=== PATIENT | female | born 1995 | race American Indian/Alaskan Native ===

== ENCOUNTER 2019-08-05 11:41 | Emergency (ER) | payer SELFPAY ==
[2019-08-05 11:59] VITALS: BP 150/84
--- NOTE | 2019-08-05 13:57 | Emergency Department Report ---
ED Female HPI - General Chief complaint: Skin/Abscess/Foreign Body Stated complaint: FB IN VAGINA SINCE 10PM Time Seen by Provider: 08/05/19 13:50 Source: patient Mode of arrival: Ambulatory Limitations: No Limitations - History of Present Illness Initial comments: Patient is a 23-year-old female who presents emergency room with complaints of a possible condom being stuck in her vagina since 10 PM last night. She states that she is not sure if it is still inside but states that she could not find it after having intercourse with her partner. She denies any pelvic pain, abdominal pain, vaginal discharge, dysuria, any complaints. She denies any past medical history or allergies to medications. She states that she is not concerned for STDs. - Related Data Allergies Allergy/AdvReac Type Severity Reaction Status Date / Time No Known Allergies Allergy Unverified 08/05/19 11:55 ED Review of Systems ROS: Stated complaint: FB IN VAGINA SINCE 10PM Other details as noted in HPI Comment: All other systems reviewed and negative ED Past Medical Hx - Past Medical History Previous Medical History?: No - Surgical History Past Surgical History?: No - Social History Smoking Status: Never Smoker Substance Use Type: None ED Physical Exam - General Limitations: No Limitations General appearance: alert, in no apparent distress - Head Head exam: Present: atraumatic, normocephalic - Eye Eye exam: Present: normal appearance - ENT ENT exam: Present: mucous membranes moist - Speculum exam: Present: vaginal bleeding, foreign body (there is small amount of bleeding present in the vaginal canal, condom present in the deep end of the vaginal canal near the cervix, removed with forceps, pt tolerated well, no complications, 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 Absent: vaginal discharge, cervical discharge - Neurological Exam Neurological exam: Present: alert, oriented X3 - Psychiatric Psychiatric exam: Present: normal affect, normal mood - Skin Skin exam: Present: warm, dry, intact ED Course Vital Signs 08/05/19 11:55 Temperature 98.2 F Pulse Rate 72 Respiratory 18 Rate Blood Pressure 150/84 O2 Sat by Pulse 100 Oximetry ED Medical Decision Making - Medical Decision Making Patient is a 23-year-old female who presents emergency room with complaints of a possible condom being stuck in her vagina since 10 PM last night. She states that she is not sure if it is still inside but states that she could not find it after having intercourse with her partner. She denies any pelvic pain, abdominal pain, vaginal discharge, dysuria, any complaints. She denies any past medical history or allergies to medications. She states that she is not concerned for STDs. Vitals are stable. 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 Foreign body was removed. advised pt Please follow-up with the [facility]. Please follow-up with the health department. Please have STD panel performed by the health department or clinic. Return to emergency room for any new or worsening symptoms. Critical care attestation.: If time is entered above; I have spent that time in minutes in the direct care of this critically ill patient, excluding procedure time. ED Disposition Clinical Impression: Foreign body in vagina Qualifiers: Encounter type: initial encounter Qualified Code(s): T19.2XXA - Foreign body in vulva and vagina, initial encounter Disposition: TO HOME OR SELFCARE Is pt being admited?: No Does the pt Need Aspirin: No Condition: Stable Instructions: Vaginal Foreign Body (ED) Additional Instructions: Please follow-up with the [facility]. Please follow-up with the health department. Please have STD panel performed by the health department or clinic. Return to emergency room for any new or worsening symptoms. Referrals: [facility] [Provider Group] - 3-5 Days [place] [Outside] - 3-5 Days Time of Disposition: 14:27 Print Language: FAROESE
== END 2019-08-05 15:24 | disposition home or self-care (01) ==
LOC: ED 11:41
DX: T19.2XXA Foreign body in vulva and vagina, initial encounter (principal); X58.XXXA Exposure to other specified factors, initial encounter; Y93.89 Activity, other specified; Y92.89 Other specified places as the place of occurrence of the external cause; Y99.8 Other external cause status

== ENCOUNTER 2021-06-11 13:43 | Inpatient (IN) | payer OTHER ==
--- NOTE | 2021-06-11 19:36 | Emergency Department Report ---
ED General Adult HPI - General Chief complaint: Recheck/Abnormal Lab/Rx Stated complaint: HEAVY BLEEDING/COUGHING/WEAK/DIZZY PUI?: No Time Seen by Provider: 06/11/21 18:55 Source: patient Mode of arrival: Ambulatory Limitations: No Limitations - History of Present Illness Initial comments: Patient is a 25-year-old female that presents emergency room with complaints of heavy menstrual bleeding for 3 months, dizziness, anemia, cough, lightheadedness and weakness. Patient states her symptoms been going on for 3 months. Patient states she went to see her csr today and was going to get a iron infusion but her hemoglobin was 5.7 and the csr sent to the emergency room for transfusion and possible admission. Patient states she has not seen her DIRECTOR CLINICAL RESEARCH yet for the heavy menstrual bleeding. Patient states she is been bleeding consistently for the entire 90 days. Patient states she is had multiple transfusions for this. Patient states been to multiple ERs. Patient states she is getting ready to get iron transfusions once her H&H is a little higher. Patient denies recent travel. Patient denies recent international travel. Patient denies exposure to the novel coronavirus. Patient denies sick contacts. Patient denies fever and chills. Patient denies cough. Patient denies diarrhea. Patient denies coming in contact with anybody with symptoms of the novel coronavirus. -: Sudden Consistency: constant Improves with: rest Worsens with: movement Associated Symptoms: cough, malaise, weakness. denies: confusion, chest pain, diaphoresis, fever/chills, headaches, loss of appetite, nausea/vomiting, rash, seizure, shortness of breath, syncope - Related Data Previous Rx's Medication Instructions Recorded Last Taken Type Ferrous Sulfate [Ferrous Sulfate 324 mg PO TID #60 tablet. 10/30/19 Unknown Rx 324 MG] medroxyPROGESTERone ACETATE 10 mg PO DAILY #10 tablet 10/30/19 Unknown Rx [Provera] Allergies Allergy/AdvReac Type Severity Reaction Status Date / Time No Known Allergies Allergy Verified 06/11/21 23:07 ED Review of Systems ROS: Stated complaint: HEAVY BLEEDING/COUGHING/WEAK/DIZZY Other details as noted in HPI Constitutional: malaise, weakness. denies: chills, fever Eyes: denies: eye pain, eye discharge, vision change ENT: denies: ear pain, throat pain Respiratory: denies: cough, wheezing Cardiovascular: denies: chest pain, palpitations Endocrine: no symptoms reported Gastrointestinal: denies: abdominal pain, nausea, diarrhea Genitourinary: denies: urgency, dysuria, discharge Musculoskeletal: denies: back pain, joint swelling, arthralgia Skin: denies: rash, lesions Neurological: as per HPI, weakness. denies: headache, paresthesias Psychiatric: denies: anxiety, depression Hematological/Lymphatic: denies: easy bleeding, easy bruising ED Past Medical Hx - Past Medical History Previous Medical History?: Yes Additional medical history: anemia, blood transfusion - Surgical History Past Surgical History?: No - Family History Family history: no significant - Social History Smoking Status: Never Smoker Substance Use Type: None - Medications Home Medications: Home Medications Medication Instructions Recorded Confirmed Last Taken Type Ferrous Sulfate [Ferrous Sulfate 324 mg PO TID #60 tablet. 10/30/19 Unknown Rx 324 MG] medroxyPROGESTERone ACETATE 10 mg PO DAILY #10 tablet 10/30/19 Unknown Rx [Provera] ED Physical Exam - General Limitations: No Limitations General appearance: alert, in no apparent distress - Head Head exam: Present: atraumatic, normocephalic - Eye Eye exam: Present: normal appearance - ENT ENT exam: Present: mucous membranes moist - Neck Neck exam: Present: normal inspection - Respiratory Respiratory exam: Present: normal lung sounds bilaterally. Absent: respiratory distress - Cardiovascular Cardiovascular Exam: Present: regular rate, normal rhythm. Absent: systolic murmur, diastolic murmur, rubs, gallop - GI/Abdominal GI/Abdominal exam: Present: soft, normal bowel sounds - Extremities Exam Extremities exam: Present: normal inspection - Back Exam Back exam: Present: normal inspection - Neurological Exam Neurological exam: Present: alert, oriented X3 - Psychiatric Psychiatric exam: Present: normal affect, normal mood - Skin Skin exam: Present: warm, dry, intact, normal color. Absent: rash ED Course - Reevaluation(s) Reevaluation #1: I discussed all results with patient. I discussed plan of care with patient. Patient agrees with plan of care and admission. Patient to be admitted to the DIRECTOR CLINICAL RESEARCH service. 06/11/21 22:12 - Consultations Consultation #1: I discussed the case with Dr. Pollard. Dr. Pollard has accepted the patient be admitted to [facility]. 06/11/21 22:12 ED Medical Decision Making - Lab Data Result diagrams: 06/11/21 19:27 06/11/21 19:27 - Medical Decision Making Patient is a 25-year-old female who presents emergency room for dizziness, lightheadedness, anemia, abnormal menstrual bleeding. Patient states she is having bleeding for 3 months. Patient states she is had multiple transfusions. Patient states she saw her csr today and they sent her here to have a transfusion. Patient had labs done and was unremarkable save for severe anemia. Patient's hemoglobin was 5.9. Patient typed and crossed. Patient given 1 unit in the ER. Patient admits to the PROFESSOR OF RHETORIC service since the patient's primary problem is a gynecologic problem. Critical care time documented due to the multiple reassessments, prolonged time at the bedside, interpretation of diagnostics and labs. - Differential Diagnosis Dizziness, lightheadedness, symptomatic anemia, abnormal menstrual Critical Care Time: Yes Critical care time in (mins) excluding proc time.: 35 Critical care attestation.: If time is entered above; I have spent that time in minutes in the direct care of this critically ill patient, excluding procedure time. Critical Care Time: 35 minutes ED Disposition Clinical Impression: Dizziness, Dysfunctional uterine bleeding Anemia Qualifiers: Anemia type: unspecified type Qualified Code(s): D64.9 - Anemia, unspecified Disposition: 09 ADMITTED INPATIENT Is pt being admited?: Yes Does the pt Need Aspirin: No Condition: Critical Time of Disposition: 22:11
[2021-06-11 20:00] LABS: Mean Corpuscular HGB Conc 30 % (30-34); Platelet Count 536 K/mm3 (140-440); Red Blood Count 3.28 M/mm3 (3.65-5.03)
[2021-06-11 20:09] LABS: Alanine Aminotransferase 9 units/L (7-56); Albumin 4.2 g/dL (3.9-5); Blood Urea Nitrogen 7 mg/dL (7-17); Hemolysis Index 1
[2021-06-11 20:10] LABS: INR 0.94 (0.87-1.13)
[2021-06-11 20:33] LABS: BUN/Creatinine Ratio 10
[2021-06-11 21:44] LABS: Hematocrit 19.9 % (30.3-42.9); Hemoglobin 5.9 gm/dl (10.1-14.3); Mean Corpuscular Volume 61 fl (79-97); Red Cell Distribution Width 29.7 % (13.2-15.2)
[2021-06-11] MEDS ORDERED: SODIUM CHLORIDE 0.9% 500 ML 500 ML IV ONE (22:01)
[2021-06-11] MEDS ORDERED: ACETAMINOPHEN 325 MG TAB PO PRN (22:56)
[2021-06-12] MEDS ORDERED: SODIUM CHLORIDE 0.9% 500 ML 500 ML ONE (00:12)
[2021-06-12 00:54] LABS: Anisocytosis 1+; Basophils % (Manual) 0 % (0.0-1.8); Platelet Estimate Consistent w Auto; Total Cells Counted 100
[2021-06-12] MEDS ORDERED: SODIUM CHLORIDE 0.9% 1000 ML 1,000 ML IV SCH (01:54)
[2021-06-12] MEDS ORDERED: MAGNESIUM HYDROXIDE (MOM) ORAL LIQD UDC PO PRN (01:54)
[2021-06-12] MEDS ORDERED: ESTROGENS, CONJUGATED 25 MG INJ IV ONE ×2 (01:54→10:00)
[2021-06-12] MEDS ORDERED: ACETAMINOPHEN 325 MG TAB PO PRN (01:54)
[2021-06-12] MEDS ORDERED: ONDANSETRON 4 MG/2 ML INJ IV PRN (01:54)
[2021-06-12] MEDS ORDERED: oxyCODONE /ACETAMINOPHEN 5-325MG TAB PO PRN (01:54)
[2021-06-12] MEDS ORDERED: ALUM-MAG HYDROXIDE-SIMETHICONE 200-200-20MG/5ML ORAL LIQD 30 ML PO PRN (01:54)
[2021-06-12] MEDS ORDERED: IBUPROFEN 600 MG TAB PO PRN (01:54)
--- NOTE | 2021-06-12 02:14 | Event Note ---
Date: 06/12/21 25 yo in ED with h/o menorrhaghia and hgb 5.9 will admit and give blood transfusion and IV premarin
[2021-06-12] MEDS ORDERED: WATER FOR INJ Sterile (PF) 10 ML ONE (03:34)
[2021-06-12 06:06] LABS: Hematocrit 19.3 % (30.3-42.9); Hemoglobin 5.9 gm/dl (10.1-14.3)
[2021-06-12] MEDS ORDERED: SODIUM CHLORIDE 0.9% 500 ML 500 ML IV ONE ×2 (06:59→10:00)
[2021-06-12] MEDS: DOCUSATE SODIUM 100 MG CAP PO SCH ×2 (09:20→22:29)
--- NOTE | 2021-06-12 09:46 | Progress Note ---
Assessment and Plan A: 25 y.o. with dysfunctional uterine bleeding, anemia. - Patient Problems (1) Anemia Current Visit: Yes Status: Acute Qualifiers: Anemia type: unspecified type Qualified Code(s): D64.9 - Anemia, unspe cified Plan to address problem: 1 Unit of PRBC;s to be transfused. Pt to get up with assistance from RN. Will draw another H/H after second unit of PRBC's have been completed. (2) Dysfunctional uterine bleeding Current Visit: Yes Status: Acute Plan to address problem: IV Premarin 25 mg ordered. 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 Has not been to the office for an evaluation. She is not on any control at this time. States that when she tried, it did not work. Has been bleeding heavy since she was 18 years old. Has never been . Consulted with Dr. Haynes. Will administer another does of IV Premarin 25 mg. Also another unit of blood to be transfused. Discussed this plan of care with patient and at this time she agrees. Pt states that she is feeling lightheaded and dizzy. Patient reports: dizzy ambulation, appetite poor, nauseated, other Objective - Vital Signs Latest vital signs: Vital Signs Temp Pulse Resp BP BP Pulse Ox 06/12/21 08:20 97.7 F 90 20 126/69 100 06/12/21 06:04 97.7 F 99 H 18 106/62 100 06/12/21 02:46 97.8 F 92 H 18 111/60 100 06/12/21 01:50 97.8 F 91 H 18 119/65 100 06/12/21 01:31 97 H 19 129/68 100 06/12/21 01:21 92 H 6 L 129/68 100 06/12/21 01:20 98.8 F 90 17 120/68 100 06/12/21 01:11 136 H 20 129/68 100 06/12/21 01:01 92 H 15 129/68 100 06/12/21 00:51 101 H 38 H 129/68 100 06/12/21 00:50 98.8 F 90 17 115/64 100 06/12/21 00:41 95 H 16 127/64 100 06/12/21 00:35 99.3 F 94 H 17 143/88 100 06/12/21 00:30 94 H 20 129/68 100 06/12/21 00:20 100 H 20 129/68 99 06/12/21 00:10 95 H 22 129/68 100 06/12/21 00:09 99.3 F 96 H 16 129/68 96 06/12/21 00:00 100 H 13 129/68 100 06/11/21 23:50 97 H 14 127/64 100 06/11/21 23:40 97 H 20 127/64 100 06/11/21 23:30 93 H 18 127/64 100 06/11/21 23:20 98 H 21 121/32 100 06/11/21 23:10 98 H 16 121/32 100 06/11/21 23:00 98 H 11 L 121/32 100 06/11/21 22:52 95 H 20 06/11/21 15:01 103 H 100 06/11/21 15:00 99.0 F 102 H 16 144/72 100 Intake and Output 06/11/21 06/12/21 06/12/21 22:59 06:59 14:59 Intake Total 470 120 Output Total 300 400 Balance 170 -280 Intake: Oral 120 Intake, Free Water 120 Blood Product 250 Leukoreduced Red Blood 250 Cells Unit [id number] Other 100 Leukoreduced Red Blood 100 Cells Unit [id number] Output: Urine 300 400 Void 300 400 Other: Intake, Other Source Leukoreduced Red Blood Saline Solution Cells Unit [id number] Total, Intake Amount 120 Total, Output Amount 200 400 Voiding Method Toilet Weight 255 lb - Exam Narrative Exam: Appears ill and lethargic. Pale dry mucus membranes. Breasts: Present: deferred Cardiovascular: Present: Normal S1, Normal S2 Lungs: Present: Clear to auscultation Abdomen: Present: normal appearance, soft, normal bowel sounds Vulva: both: normal - Labs Labs: Abnormal lab results 06/11/21 06/11/21 06/11/21 Range/Units 19:27 19:27 19:27 WBC 11.9 H (4.5-11.0) K/mm3 RBC 3.28 L (3.65-5.03) M/mm3 Hgb 5.9 L* (10.1-14.3) gm/dl Hct 19.9 L* (30.3-42.9) % MCV 61 L (79-97) fl MCH 18 L (28-32) pg RDW 29.7 H (13.2-15.2) % Plt Count 536 H (140-440) K/mm3 Seg Neuts % (Manual) 80.0 H (40.0-70.0) % Lymphocytes % (Manual) 13.0 L (13.4-35.0) % Seg Neutrophils # Man 9.5 H (1.8-7.7) K/mm3 Glucose 118 H (65-100) mg/dL Crossmatch See Detail 06/12/21 Range/Units 05:44 WBC (4.5-11.0) K/mm3 RBC (3.65-5.03) M/mm3 Hgb 5.9 L* (10.1-14.3) gm/dl Hct 19.3 L* (30.3-42.9) % MCV (79-97) fl MCH (28-32) pg RDW (13.2-15.2) % Plt Count (140-440) K/mm3 Seg Neuts % (Manual) (40.0-70.0) % Lymphocytes % (Manual) (13.4-35.0) % Seg Neutrophils # Man (1.8-7.7) K/mm3 Glucose (65-100) mg/dL Crossmatch
[2021-06-12 17:02] LABS: Hematocrit 22.2 % (30.3-42.9); Hemoglobin 7.2 gm/dl (10.1-14.3)
--- NOTE | 2021-06-13 00:41 | Short Stay Summary ---
Short Stay Documentation Date of service: 06/13/21 - History Principal diagnosis: Menometrorrhagia, severe anemia H&P: obtained from office Past Medical History: anemia (multiple blood transfusions), other (? von Willebrand disease) Past Surgical History: No surgical history Social history: no smoking - Allergies and Medications Current Medications: Allergies No Known Allergies Allergy (Verified 06/11/21 23:07) Home Medications Medication Instructions Recorded Confirmed Last Taken Type Ferrous Sulfate [Ferrous Sulfate 324 mg PO TID #60 tablet.dr 10/30/19 Unknown Rx 324 MG] medroxyPROGESTERone ACETATE 10 mg PO DAILY #10 tablet 10/30/19 Unknown Rx [Provera] Active Medications Acetaminophen (Acetaminophen 325 Mg Tab) 650 mg PO Q4H PRN PRN Reason: Pain MILD(1-3)/Fever >100.5/[place] Al Hydrox/Mg Hydrox/Simethicone (Alum-Mag Hydroxide-Simethicone [id number]/5ml Oral Liqd 30 Ml) 30 ml PO Q4H PRN PRN Reason: Indigestion Docusate Sodium (Docusate Sodium 100 Mg Cap) 100 mg PO BID COUNTS INCLUDE 234 BEDS AT THE [facility] Last Admin: 06/12/21 22:29 Dose: 100 mg Sodium Chloride (Nacl 0.9% 1000 Ml) 1,000 mls @ 100 mls/hr IV DIRECT COUNTS INCLUDE 234 BEDS AT THE [facility] Last Admin: 06/12/21 03:08 Dose: 100 mls/hr Ibuprofen (Ibuprofen 600 Mg Tab) 600 mg PO Q6H PRN PRN Reason: Pain, Mild (1-3) Magnesium Hydroxide (Magnesium Hydroxide (Mom) Oral Liqd Udc) 30 ml PO Q4H PRN PRN Reason: Constipation Ondansetron HCl (Ondansetron 4 Mg/2 Ml Inj) 4 mg IV Q8H PRN PRN Reason: Nausea And Vomiting Last Admin: 06/12/21 09:20 Dose: 4 mg Oxycodone/Acetaminophen (Oxycodone /Acetaminophen 5-325mg Tab) 1 tab PO Q6H PRN PRN Reason: Pain, Moderate (4-6) Last Admin: 06/12/21 03:42 Dose: 1 tab Sodium Chloride (Sodium Chloride 0.9% 10 Ml Flush Syringe) 10 ml IV BID COUNTS INCLUDE 234 BEDS AT THE [facility] Last Admin: 06/12/21 09:32 Dose: 10 ml Sodium Chloride (Sodium Chloride 0.9% 10 Ml Flush Syringe) 10 ml IV PRN PRN PRN Reason: LINE FLUSH - Physical exam Breasts: deferred - Disposition Condition at discharge: Good Disposition: 01 HOME / SELF CARE / HOMELESS - Discharge Diagnoses (1) Anemia Status: Chronic Qualifiers: Anemia type: unspecified type Qualified Code(s): D64.9 - Anemia, unspecified (2) Dizziness Status: Acute (3) Dysfunctional uterine bleeding Status: Acute Short Stay Discharge Plan Activity: other (no heavy lifting, no operating heavy, large equipment, no exercise) Weight Bearing Status: Full Weight Bearing Diet: low fat, low cholesterol, low salt Special Instructions: no heavy lifting (greater than 25 pounds) Follow up with: PRIMARY CAREMD [Primary Care Provider] - 7 Days ROMAINE NOONAN MD [Staff Physician] - 06/16/21 11:15 am STEPHEN LAO MD [Referring] - 10 Days (Evaluate for Iron infusion and possible von Willebrand disease) Prescriptions: Ferrous Sulfate [Ferrous Sulfate 324 MG] 324 mg PO TID #90 tablet. medroxyPROGESTERone ACETATE [Provera] 10 mg PO DAILY #30 tablet
[2021-06-13 09:31] VITALS: BP 97/43
[2021-06-13] MEDS: DOCUSATE SODIUM 100 MG CAP PO SCH (10:56)
== END 2021-06-13 10:50 | disposition home or self-care (01) | DRG 761 ==
LOC: ED 13:43 → OB 22:56
PROVIDERS: ADMIT Obstetrics & Gynecology; ATTEND Obstetrics & Gynecology
PROC: 30233N1 Transfusion of Nonautologous Red Blood Cells into Peripheral Vein, Percutaneous Approach (ICD-10-PCS; principal; 2021-06-12)
DX: N93.8 Other specified abnormal uterine and vaginal bleeding (principal); D64.9 Anemia, unspecified; Z20.822 Contact with and (suspected) exposure to COVID-19
CPT/HCPCS: 36415; 80053; 84703; 85007; 85014; 85018; 85025; 85610; 85730; 86850; 86900; 86901; 86920; G0378; Q0162; J1410; J2405; J7030; J7040; P9016; U0003